=== PATIENT | male | born 1975 | race Two or more races ===

== ENCOUNTER 2023-06-03 16:39 | Emergency (ER) | payer OTHER ==
[~2023-06-03] VITALS: Ht 172.7 cm; Wt 90.7 kg
[2023-06-03] MEDS ORDERED: KETOROLAC TROMETHAMINE 30 MG VIAL IV ONE (17:45)
[2023-06-03 18:20] LABS: URINE APPEARANCE Turbid; URINE BILIRRUBIN Negative (NEGATIVE); URINE COLOR Yellow; URINE GLUCOSE Negative (NEGATIVE); URINE LEUKOCYTE Negative; URINE NITRATE Negative; URINE PROTEIN Negative (NEGATIVE); URINE UROBILINOGEN 0.2 E.U./dl
[2023-06-03 18:22] LABS: URINE BACTERIA 16.3 uL (0.0-1933); URINE EPITHELIAL CELLS 2.6 uL (0.0-38.8); URINE RBC 45.9 uL (0.0-20.8); URINE WBC 5.5 uL (0.0-23.2)
[2023-06-03 18:24] LABS: HEMATOCRIT 42.9 % (39.0-48.0); HEMOGLOBIN 14.9 g/dL (13-16.00); MEAN CELL VOLUME 90.9 fL (80.0-100.00); MEAN CORPUSCULAR HEMOGLOBIN 31.6 pg (27.00-32.0); MEAN CORPUSCULAR HGB CONC 34.8 g/dl (32.0-36.0); PLATELET COUNT 232 K/uL (150-450); RED BLOOD COUNT 4.72 M/uL (4.00-6.00); RED CELL DISTRIBUTION WIDTH 12.5 % (11.5-14.5)
[2023-06-03 18:32] LABS: URINE BLOOD TRACE
[2023-06-03 18:48] LABS: CREATININE SERUM 1.12 mg/dL (0.70-1.30); GFR 69.98
[2023-06-03 18:53] LABS: POTASSIUM 3.82 mEq/L (3.5-5.1)
== END 2023-06-03 22:03 | disposition home or self-care (01) ==
LOC: ER 16:40
PROVIDERS: Nurse Practitioner Family
DX: R30.0 Dysuria (principal)